=== PATIENT | male | born 1960 | race Caucasian/White ===

== ENCOUNTER 2017-04-09 08:02 | Outpatient (CLI) | payer OTHER ==
--- NOTE | 2017-04-09 12:29 | CT ---
CONTRAST ENHANCED CT IMAGES ABDOMEN AND PELVIS: HISTORY: A 56-year-old with a history of 25 to 30 pounds of weight loss. FINDINGS: The lung bases are unremarkable. No evidence of free intraperitoneal air is seen. The liver, spleen, pancreas, gallbladder, adrenal glands, and kidneys are unremarkable. There appears to be an area of focal small bowel thickening in the ileum with dilatation of the small bowel in this region. This may represent a distal small bowel mass. Differential diagnosis include s lymphoma. No evidence of significant colonic masses seen. A moderate amount of stool is seen in the colon. IMPRESSION: Abnormal area of distal small bowel wall thickening with dilatation. The differential diagnosis incl udes an inflammatory process versus malignancy. POS: [facility]
[2017-04-09] MEDS ORDERED: Iopamidol 370 76% 100 ML VIAL ONE (17:04)
== END 2017-04-09 08:03 | disposition home or self-care (01) ==
LOC: CT 08:02
PROVIDERS: ATTEND Internal Medicine Infectious Disease
DX: Z21 Asymptomatic human immunodeficiency virus [HIV] infection status (principal); K63.89 Other specified diseases of intestine
CPT/HCPCS: 74177; 82565

== ENCOUNTER 2019-01-02 20:28 | Emergency (ER) | payer SELFPAY ==
[2019-01-02 21:03] LABS: #Eosinphils 0.1 thou/uL (0.0-0.7); #Monocytes 0.4 thou/uL (0.11-0.59); #Neutrophils 4.1 thou/uL (1.40-6.50); %Basophils 0.4 % (0.0-1.0); %Eosinophils 1.3 % (0.0-10.0); %Lymphocytes 17.1 % (21.0-51.0); %Monocytes 7.6 % (0.0-10.0); %Neutrophils 73.6 % (42.0-75.0); Hemoglobin 12.6 g/dL (14.0-18.0); Mean Corpuscular HGB CONC 34.4 g/dL (32.0-36.0); Mean Corpuscular Volume 87.4 fL (78.0-98.0); Mean Platelet Volume 7.1 fL (7.4-10.4); Platelet Count 193 thou/uL (130-400); RBC Distribution Width 12.4 % (11.5-14.5); White Blood Cell (WBC) Count 5.6 thou/uL (4.8-10.8)
[2019-01-02 21:22] LABS: ALT (SGPT) 15 U/L (8-55); AST (SGOT) 18 U/L (5-34); Albumin 3.4 g/dL (3.5-5.0); Alkaline Phosphatase 99 U/L (40-110); Anion Gap 12 mmol/L (10-20); BUN (Urea Nitrogen) 18 mg/dL (8.4-25.7); Bilirubin, Total 0.3 mg/dL (0.2-1.2); Calc. Creatinine Clearance 0 mL/min (70-130); Calcium 8.4 mg/dL (7.8-10.44); Carbon Dioxide 26 mmol/L (22-29); Chloride 99 mmol/L (98-107); Estimated GFR-MDRD 83; Globulin 2.9 g/dL (2.4-3.5); Glucose 113 mg/dL (70-105); Lipase 33 U/L (8-78); Protein, Total 6.3 g/dL (6.0-8.3); Sodium 133 mmol/L (136-145)
[2019-01-02 21:31] LABS: Bilirubin Negative (Negative); Blood, Urine Negative (Negative); Clarity Clear (Clear); Glucose, Urine (Dipstick) Normal (Negative); Leukocyte Negative Leu/uL (Negative); Nitrite Negative (Negative); Protein, Urine (Dipstick) 20 mg/dL (Neg-Trace); Urobilinogen 3 mg/dL (Less than 2)
[2019-01-02] MEDS ORDERED: Morphine 4 MG/ML VIAL ONE ×2 (21:33→23:13)
[2019-01-02] MEDS ORDERED: Ondansetron PF 4 MG/2 ML Vial ONE (21:33)
--- NOTE | 2019-01-02 22:19 | RAD ---
EXAM: CHEST ONE VIEW HISTORY: Shortness of breath, dizziness, numbness in left arm. COMPARISON: None FINDINGS: The cardiac silhouette and pulmonary vasculature is within normal limits. The lungs are clear. The os seous structures are intact. IMPRESSION: No acute cardiopulmonary process.
[2019-01-02] MEDS ORDERED: Ketorolac Tromethamine 30 MG/ML VIAL ONE (23:13)
== END 2019-01-03 03:16 | disposition home or self-care (01) ==
LOC: ERS 20:28
DX: E86.0 Dehydration (principal); M54.5 Low back pain; B20 Human immunodeficiency virus [HIV] disease; F17.210 Nicotine dependence, cigarettes, uncomplicated
CPT/HCPCS: 71045; 80053; 81003; 83605; 83690; 83880; 85025; 93005; 96361; 96374; 96375; 96376; J1885; J2270; J2405

== ENCOUNTER 2019-01-13 15:45 | Inpatient (IN) | payer SELFPAY ==
[2019-01-13 16:45] LABS: #Basophils 0.1 thou/uL (0.0-0.2); #Eosinphils 0.1 thou/uL (0.0-0.7); #Lymphocytes 0.9 thou/uL (1.20-3.40); #Monocytes 0.6 thou/uL (0.11-0.59); #Neutrophils 4.1 thou/uL (1.40-6.50); %Basophils 1.2 % (0.0-1.0); %Lymphocytes 15.2 % (21.0-51.0); %Neutrophils 72.7 % (42.0-75.0); Hemoglobin 13.6 g/dL (14.0-18.0); Mean Corpuscular HGB CONC 32.8 g/dL (32.0-36.0); Mean Corpuscular Hemoglobin 28.4 pg (27.0-31.0); Mean Corpuscular Volume 86.6 fL (78.0-98.0); Mean Platelet Volume 6.9 fL (7.4-10.4); Platelet Count 178 thou/uL (130-400); RBC Distribution Width 13.4 % (11.5-14.5); Red Blood Cell (RBC) Count 4.81 mill/uL (4.70-6.10); White Blood Cell (WBC) Count 5.6 thou/uL (4.8-10.8)
--- NOTE | 2019-01-13 16:48 | RAD ---
RADIOGRAPH CHEST 1 VIEW: DATE: 01/13/2019 HISTORY: 58-year-old male with dyspnea FINDINGS: There are no airspace densities, pulmonary edema, pneumothorax, or cardiomegaly. The lateral costophr enic angles are sharp. IMPRESSION: No acute cardiopulmonary findings.
[2019-01-13 17:01] LABS: ALT (SGPT) 16 U/L (8-55); AST (SGOT) 20 U/L (5-34); Albumin 3.4 g/dL (3.5-5.0); Alkaline Phosphatase 87 U/L (40-110); Anion Gap 13 mmol/L (10-20); BUN (Urea Nitrogen) 18 mg/dL (8.4-25.7); Bilirubin, Total 0.4 mg/dL (0.2-1.2); Calc. Creatinine Clearance 0 mL/min (70-130); Carbon Dioxide 28 mmol/L (22-29); Chloride 101 mmol/L (98-107); Estimated GFR-MDRD 87; Globulin 3.3 g/dL (2.4-3.5); Glucose 91 mg/dL (70-105); Potassium 4.1 mmol/L (3.5-5.1); Protein, Total 6.7 g/dL (6.0-8.3); Sodium 138 mmol/L (136-145)
[2019-01-13 17:02] LABS: CRP (Inflammatory) 1.73 mg/dL (= or < 0.5)
--- NOTE | 2019-01-13 18:26 | CT ---
CT BRAIN NONCONTRAST: DATE: 01/13/2019 HISTORY: 58-year-old male with generalized weakness FINDINGS: There is no evidence of acute intra-axial or extra-axial hemorrhage. There is no midline shift or any other mass effect. There is no extra-axial fluid collection. There is no evidence of obstructive hydrocephalus. Calvarium is intact. IMPRESSION: No acute intracranial findings.
--- NOTE | 2019-01-13 18:47 | MRI ---
MRI cervical spine noncontrast: DATE: 01/13/2019 HISTORY: 58-year-old male with hypesthesia and paresthesia of the rest of the body inferior to the chest. COMPARISON: None available FINDINGS: Cervical spinal cord is normal in size and signal. No syringohydromyelia. Vertebral body heights are maintained. Bone marrow signal is normal. Moderate right facet DJD at C2-3. Mild to moderate facet DJD on the left at C2-3. Mild facet DJD at multiple levels bilaterally elsewhere. Moderate disc space narrowing at C5-6 and C6-7. Broad-based disc-osteophytic bar complex is encroaching upon the anterior aspect of spinal canal at C3-4, C4-5, C5-6, and C6-7. Unremarkable perivertebral spaces and retropharyngeal space. C1-2: No central stenosis. C2-3: No central stenosis. Mild right neural foraminal stenosis. No left neural foraminal stenosis. C3-4: Mild to moderate central spinal canal stenosis. Mild right neural foraminal stenosis. No left n eural foraminal stenosis. C5-6: Minimal posterior displacement of the spinal cord by broad-based disc-osteophytic bar complex, especially on right side. Right uncinate process osteophytes result in severe right neural foraminal stenosis. There is an unusual finding of an approximately 1 x 0.5 x 0.8 cm T2 hyperintense and T1 hypointense signal abnormality in the right lateral recess which appears to extend into the right facet joint, widening that facet joint. No left neural foraminal stenosis. C6-7: Mild to moderate central spinal canal stenosis. Moderate right neural foraminal stenosis. Mild to moderate left neural foraminal stenosis. C7-T1: Normal. IMPRESSION: 1. Cervical spondylosis, with moderate degenerative disc disease at C5-6 and C6-7, and moderate C2-3 facet osteoarthrosis. 2. Mostly low-grade central spinal canal stenosis. Greatest at C5-6. 3. No miah cord compression. 4. Severe right neural foraminal stenosis at C5-6. 5. Lesion in the right lateral recess at C5-6 apparently causing widening of the right facet joint. U nknown etiology. Recommend further evaluation with contrast-enhanced MRI of cervical spine on nonemergent basis. Also recommend noncontrast CT of cervical spine to search for possible osseous flor nges associated with that.
--- NOTE | 2019-01-13 19:01 | MRI ---
MRI thoracic spine noncontrast: DATE: 01/13/2019 HISTORY: 58-year-old male with worsening mid back pain with associated hypesthesia and paresthesia in the body inferior to the chest and all levels inferior to the chest. FINDINGS: Vertebral body heights are maintained. Mild lateral curvature. Bone marrow signal is normal. No high- grade degenerative disc disease. No focal disc herniation or osteophyte encroachment upon spinal canal. No central stenosis or high-grade neural foraminal stenosis at any level. Thoracic spinal cord is normal in size and signal. No syrinx. No major pathology of perivertebral spaces. Several Schmorl's nodes at upper endplates in lower thoracic spine. No cord impingement. IMPRESSION: No major pathology.
--- NOTE | 2019-01-13 19:15 | MRI ---
MRI LUMBAR SPINE NONCONTRAST: DATE: 01/13/2019 HISTORY: 58-year-old male with low back pain, and hypesthesia and paresthesia of body from chest and below. COMPARISON: None available FINDINGS: Unremarkable perivertebral spaces. There is a transitional vertebra at the lumbosacral junction. After review of the plain radiograph of 12/31/[address] of abdomen and pelvis of 04/09/2017, the following the evaluation of levels will be used: There are 12 paired ribs. The first nonrib-bearing vertebra will be designated as L1. The lumbosacral transitional level will then be L6. The dysplastic left L6 transverse process is comp letely fused with the left S1 sacral ala. The right dysplastic L6 transverse vertebra articulates with the right sacral ala. Vertebral body heights are maintained. No major spondylolisthesis. Cauda equina is arranged in a symm etrical, normal distribution throughout the thecal sac. There is no central spinal canal stenosis at any level. Bone marrow signal is normal. Conus medullaris terminates at approximately T12-L1. T12-L1: Normal L1-2: Normal L2-3: Normal L3-4: Mild lateral and far lateral shallow right disc protrusion causing mild right neural foraminal stenosis. Otherwise normal. L4-5: Mild disc desiccation. Mild disc space narrowing. Mild, shallow, broad-based chronic indentatio n of superior endplate of L5. Diffuse disc bulge. Mild to moderate bilateral neural foraminal stenosis. No central stenosis. Bilateral paracentral annular fissures peripherally. L5-6: Mild to moderate disc space narrowing. Degenerative retrolisthesis of L5 on L6. Mild diffuse di sc bulge. Tiny central and left paracentral shallow disc protrusion with left paracentral annular fissure indents the ventral aspect of thecal sac and contacts the bilateral L6 nerve roots, left grea ter than right. No central stenosis. Mild to moderate bilateral neural foraminal stenosis. Mild bilateral facet DJD. L6-S1: Hypoplastic disc space. Hypoplastic facet joints. No central or neural foraminal stenosis. IMPRESSION: 1) lumbosacral transitional vertebra type IV. 2.) Moderate degenerative disc disease at the level directly superior to the lumbosacral transitional level. 3.) No central spinal canal stenosis at any level. 4.) Mild to moderate neural foraminal stenosis bilaterally at several levels. 5) no miah nerve root compression at any level.
[2019-01-13 21:21] LABS: Bilirubin Negative (Negative); Blood, Urine Negative (Negative); Clarity Clear (Clear); Glucose, Urine (Dipstick) Negative (Negative); Leukocyte Negative (Negative); Nitrite Negative (Negative); Protein, Urine (Dipstick) Trace mg/dL (Neg-Trace)
[2019-01-13 23:18] VITALS: BMI 15.9
[2019-01-14] MEDS ORDERED: Ondansetron PF 4 MG/2 ML Vial IVP PRN (01:54)
[2019-01-14] MEDS ORDERED: Ondansetron ODT 4 MG TAB PO PRN (01:54)
[2019-01-14] MEDS ORDERED: hydrALAZINE 20 MG/ML VIAL SLOW IVP PRN (01:54)
[2019-01-14] MEDS: Piperacillin/Tazobactam 3.375 GM in Sodium Chloride 0.9% 100 ML IVPB SCH ×4 (02:13→19:57)
[2019-01-14] MEDS: Acetaminophen 500 MG TAB PO PRN ×2 (02:18→07:45)
[2019-01-14] MEDS ORDERED: Vancomycin HCl 1 GM in Premix Bag 1 BAG IVPB SCH (03:00)
[2019-01-14] MEDS: Vancomycin HCl 750 MG in Sodium Chloride 0.9% 250 ML 250 ML IVPB SCH ×2 (03:13→14:37)
[2019-01-14] MEDS: HYDROcodone/Acetaminophen 7.5/325 mg Tablet PO PRN (03:46)
[2019-01-14 06:20] LABS: Anion Gap 7 mmol/L (10-20); BUN (Urea Nitrogen) 17 mg/dL (8.4-25.7); Calc. Creatinine Clearance 78 mL/min (70-130); Calcium 8.3 mg/dL (7.8-10.44); Carbon Dioxide 29 mmol/L (22-29); Chloride 104 mmol/L (98-107); Estimated GFR-MDRD Greater than 90; Glucose 93 mg/dL (70-105); Potassium 4.4 mmol/L (3.5-5.1); Sodium 136 mmol/L (136-145)
[2019-01-14 06:27] LABS: Band 15 % (5-11); Hemoglobin 12.5 g/dL (14.0-18.0); Lymphocytes 6 % (21-51); MDiff Complete? YES; Mean Corpuscular HGB CONC 33.7 g/dL (32.0-36.0); Mean Corpuscular Hemoglobin 29.4 pg (27.0-31.0); Mean Corpuscular Volume 87.3 fL (78.0-98.0); Mean Platelet Volume 6.8 fL (7.4-10.4); Monocytes 1 % (0-10); Neutrophil 78 % (42-75); Platelet Count 176 thou/uL (130-400); RBC Distribution Width 13.3 % (11.5-14.5); Red Blood Cell (RBC) Count 4.26 mill/uL (4.70-6.10); White Blood Cell (WBC) Count 6.9 thou/uL (4.8-10.8)
[2019-01-14] MEDS ORDERED: Morphine 4 MG/ML VIAL IV SCH (07:00)
[2019-01-14] MEDS: Famotidine 20 MG TAB PO SCH ×2 (07:45→19:57)
[2019-01-14] MEDS ORDERED: FLU VACC QS2019-20(6MOS UP)/PF 60 MCG/0.5 ML SYRINGE IM ONE (09:00)
--- NOTE | 2019-01-14 09:04 | HP ---
PRIMARY CARE PROVIDER: Dr. Vince Graves with Infectious Disease Service. CHIEF COMPLAINT: Back pain and numbness of the chest and lower extremities. HISTORY OF PRESENT ILLNESS: This is a 58-year-old male with a known history of human immunodeficiency virus, on current anti-retroviral therapy since 2004. Complaining of approximately 3-week history of paresthesias, numbness from the mid torso to the lower extremities. The patient denied any specific fever, chills, bowel, or bladder incontinence. The patient initially complained of central lower back pain, evaluated at [facility] with plain radiographs showing degenerative findings. The patient reports difficulty ambulating and standing due to the numbness and pain. The patient denied any chest pain, shortness of breath, unilateral weakness, or difficulty with speech. In the emergency room, the patient underwent extensive evaluation with multiple imaging modality including MRI of the cervical, thoracic, and lumbar spine in addition to CT of the brain. Cervical spine MRI showed questionable mass in the right lateral recess at C5 on C6. Etiology unclear. CT of the brain without contrast showed no acute intracranial process. The patient received IV fluids in the emergency room and was referred to the Hospitalist Service for admission and evaluation. PAST MEDICAL HISTORY: Human immunodeficiency virus with current anti-retroviral therapy. PAST SURGICAL HISTORY: Reviewed and negative. CURRENT MEDICATIONS: Symtuza one tablet daily. ALLERGIES: NO KNOWN DRUG ALLERGIES. FAMILY HISTORY: No inheritable disease per patient report. SOCIAL HISTORY: Resides in [place], [place]. Smokes up to a pack of cigarettes daily. Occasional alcohol use. Difficulty ambulating due to back pain and lower extremity numbness. No illicit drug use. REVIEW OF SYSTEMS: CONSTITUTIONAL: Negative for weight loss or gain, ability to conduct usual activities. SKIN: Negative for rash, itching. EYES: Negative for double vision, pain. ENT/MOUTH: Negative for nose bleeding, neck stiffness, pain, tenderness. CARDIOVASCULAR: Negative for palpitations, dyspnea on exertion, orthopnea. RESPIRATORY: Negative for shortness of breath, wheezing, cough, hemoptysis, fever or night sweats. GASTROINTESTINAL: Negative for poor appetite, abdominal pain, heartburn, nausea, vomiting, constipation, or diarrhea. GENITOURINARY: Negative for urgency, frequency, dysuria, nocturia. MUSCULOSKELETAL: Negative for pain, swelling. NEUROLOGIC/PSYCHIATRIC: Negative for anxiety, depression. ALLERGY/IMMUNOLOGIC: Negative for skin rash, bleeding tendency. Otherwise negative except as stated per HPI. PHYSICAL EXAMINATION: VITAL SIGNS: On admission, blood pressure 136/87, pulse 92, respiratory rate 16, temperature 97.8 degrees Fahrenheit, and O2 saturation 99% on room air. GENERAL APPEARANCE: This is a 58-year-old male, thin appearing, alert, responsive, in no acute distress. HEENT: Pupils are equal, round, reactive to light and accommodation. Extraocular muscles are intact. No scleral icterus. No conjunctival injection. Nares patent. OP is clear. Teeth in fair repair. NECK: Supple. No cervical adenopathy. No thyromegaly. No carotid bruits. No JVD appreciated. Cervical spine with full active and passive range of motion. No meningeal signs noted. CHEST: Lungs are clear to auscultation bilaterally. CARDIOVASCULAR: S1, S2 without noted murmur, rub, or gallop. ABDOMEN: Flat, soft, nontender, and nondistended. Bowel sounds are positive in all 4 quadrants. There is no hepatosplenomegaly. No abdominal bruits. No rebound or guarding appreciated. EXTREMITIES: Warm and dry with fair turgor. Generalized atrophy noted. Pulses are palpable distally at the dorsalis pedis, posterior tibial, and popliteal arteries bilaterally. Capillary refill less than 2 seconds. NEUROLOGIC: Loss of sensation in the mid torso below the nipple line to the abdominal and proximal thighs. Rapid alternating movements abnormal. Babinski negative. No nystagmus. Not observed ambulatory during this exam. Cranial nerves 2 through 12 are grossly intact. PERTINENT LABORATORY AND X-RAY FINDINGS: Portable chest x-ray dated 01/13/2019, showed no acute cardiopulmonary process. Cervical spine MRI dated 01/13/2019, showed lesion in the right lateral recess at C5 on C6 with widening of the right facet joint. Severe right neural foraminal stenosis at C5 on C6. Thoracic spine MRI dated 01/13/2019, showed no major pathology. MRI of the lumbar spine dated 01/13/2019, showed moderate degenerative disk disease. CT of the brain without contrast dated 01/13/2019, showed no acute intracranial process. Laboratory data, basic metabolic profile within normal limits. Total CK of 52. CRP 1.73. CBC showed a white blood cell count of 5.6, hemoglobin 13.6, hematocrit 42, platelet count 178 with 73% neutrophils, ESR 41. ASSESSMENT/PLAN: 1. Paresthesia and peripheral neuropathy. The patient will be admitted to the medical floor. Questionable relationship to lesion noted at the C5-C6 region on MRI of the cervical spine. We will consult Neurology and Neurosurgical services for evaluation. We will initiate vancomycin 1 g IV q.12 hours with additional Zosyn 3.375 g IV q.6 hours for questionable diskitis or infectious process. Consult Infectious Disease Service for further evaluation. PT evaluation in the a.m. for functional assessment. Pain control as clinically indicated. 2. Human immunodeficiency virus. We will continue Symtuza daily. Consult Infectious Disease Service for any further recommendations. 3. Ataxic gait. Secondarily to #1. See #1 above for management. 4. Moderate protein-calorie malnutrition. Questionable wasting syndrome in the context of human immunodeficiency virus. Consider CD4 assessment. Consider Megace. 5. Prophylaxis. SCDs while in bed. Pepcid 20 mg p.o. b.i.d. Influenza vaccine prior to discharge. CODE STATUS: Full. Surrogate medical decision maker not identified. Job ID: [id number]
[2019-01-14] MEDS ORDERED: Iopamidol-370 76% 500 ML 1 ML ONE (11:45)
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
[2019-01-14 20:07] LABS: Free T4 (Free Thyroxine) 0.96 ng/dL (0.70-1.48); Thyroid Stimulating Hormone 0.6529 uIU/mL (0.35-4.94)
--- NOTE | 2019-01-14 20:08 | CT ---
CT Chest Abd Pelvis W Con History: HIV Comparison: CT abdomen and pelvis thousand 18 Findings: Mild centrilobular emphysema. No pneumothorax. No effusion. The thyroid is unremarkable. No pericardial effusion. No mediastinal adenopathy. Moderate stool burden throughout the colon. No dilated loops of large or small bowel. The spleen, pita er, gallbladder, pancreas are all unremarkable. No intrahepatic or extrahepatic biliary dilatation. No hydronephrosis. Superior mesenteric artery and celiac trunk are patent as well as the portal vein. Old compression deformity of L4. Impression: No acute inflammatory process within the chest, abdomen, or pelvis.
[2019-01-14 20:15] LABS: Syphilis Antibody Index 19.54 S/CO (<1.00 Non-Reactive)
[2019-01-14 21:30] LABS: Syphilis Antibody REACTIVE (Nonreactive)
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
[2019-01-15] MEDS: Piperacillin/Tazobactam 3.375 GM in Sodium Chloride 0.9% 100 ML IVPB SCH ×4 (02:17→20:21)
[2019-01-15] MEDS: Vancomycin HCl 750 MG in Sodium Chloride 0.9% 250 ML 250 ML IVPB SCH ×2 (03:24→14:04)
[2019-01-15] MEDS: Famotidine 20 MG TAB PO SCH ×2 (07:50→20:21)
[2019-01-15 09:05] LABS: ALT (SGPT) 25 U/L (8-55); AST (SGOT) 31 U/L (5-34); Alkaline Phosphatase 89 U/L (40-110); Anion Gap 10 mmol/L (10-20); BUN (Urea Nitrogen) 19 mg/dL (8.4-25.7); Bilirubin, Total 0.4 mg/dL (0.2-1.2); Calc. Creatinine Clearance 67 mL/min (70-130); Calcium 8.6 mg/dL (7.8-10.44); Carbon Dioxide 27 mmol/L (22-29); Chloride 105 mmol/L (98-107); Estimated GFR-MDRD 80; Globulin 3.2 g/dL (2.4-3.5); Glucose 96 mg/dL (70-105); Magnesium 2.1 mg/dL (1.6-2.6); Phosphorus 2.8 mg/dL (2.3-4.7); Potassium 4.8 mmol/L (3.5-5.1); Protein, Total 6.2 g/dL (6.0-8.3); Sodium 137 mmol/L (136-145)
[2019-01-15] MEDS ORDERED: Multivit, Therapeutic 1 TAB PO SCH (09:45)
[2019-01-15] MEDS ORDERED: Cyanocobalamin 1000 MCG/ML VIAL IM SCH (09:45)
[2019-01-15] MEDS ORDERED: Folic Acid 1 MG TAB PO SCH (09:45)
[2019-01-15 10:40] LABS: Band 12 % (5-11); Eosinophils 3 % (0-10); Hemoglobin 12.5 g/dL (14.0-18.0); Lymphocytes 13 % (21-51); MDiff Complete? YES; Mean Corpuscular HGB CONC 33.3 g/dL (32.0-36.0); Mean Corpuscular Hemoglobin 29.3 pg (27.0-31.0); Mean Corpuscular Volume 87.8 fL (78.0-98.0); Mean Platelet Volume 7.6 fL (7.4-10.4); Monocytes 4 % (0-10); Neutrophil 64 % (42-75); Platelet Count 162 thou/uL (130-400); RBC Distribution Width 13.3 % (11.5-14.5); Reactive Lymphocytes 4 % (0-10); Red Blood Cell (RBC) Count 4.27 mill/uL (4.70-6.10); White Blood Cell (WBC) Count 6.3 thou/uL (4.8-10.8)
--- NOTE | 2019-01-15 11:05 | MRI ---
MRI CERVICAL SPINE WITH AND WITHOUT CONTRAST: 01/15/2019 HISTORY: Evaluate lesion in the right foraminal region at C5-6 noted on prior MRI. COMPARISON: 01/13/2019 TECHNIQUE: Multiplanar multisequence MR imaging of the cervical spine with and without contrast. FINDINGS: The sagittal STIR imaging demonstrates no focal area of osseous marrow edema. Minimal retrolisthesis at C3-4. C2-3: Small central disc protrusion. No significant central canal or neural foraminal stenosis. C3-4: Disc desiccation with mild disc space narrowing and mild disc bulge partially effacing the vent ral thecal sac with mild central canal stenosis. No significant neural foraminal stenosis. C4-5: Disc space narrowing with mild disc bulge partially effacing the ventral thecal sac with mild c entral canal stenosis. Mild facet and uncovertebral osteophyte formation on the right with mild right neural foraminal stenosis. No significant left neural foraminal stenosis. C5-6: There is disc space narrowing and disc desiccation with mild disc bulge partially effacing the ventral thecal sac with mild central canal stenosis. Significant facet and uncovertebral osteophyte formation bilaterally, particularly on the right, with mild left and moderate/severe right neural for aminal stenosis. No mass is noted within the right neural foramen or right lateral recess at C5-6. C6-7: There is disc space narrowing and disc desiccation with degenerative endplate change and mild d isc bulge. No significant central canal stenosis. Facet and uncovertebral osteophyte formation noted, right greater than left, with mild bilateral neural foraminal stenosis, right greater than lef t. C7-T1: No significant central canal or neural foraminal stenosis. No focal area of abnormal signal intensity is identified within the cervical cord. Post contrast imaging demonstrates no abnormal enhancement involving the contents of the thecal sac, the imaged osseous structures, or the intervertebral discs. IMPRESSION: Cervical spine degenerative change as detailed above, most significant finding being significant neur al foraminal stenosis on the right at C5-6, on the basis of facet and uncovertebral osteophyte formation. No associated mass is noted in this region. Transcribed Date/Time: 01/15/2019 2:11 PM
[2019-01-15 14:54] LABS: Vancomycin, Trough 8.3 ug/mL
[2019-01-15] MEDS: Folic Acid 1 MG TAB PO SCH (20:21)
[2019-01-16] MEDS: Piperacillin/Tazobactam 3.375 GM in Sodium Chloride 0.9% 100 ML IVPB SCH ×2 (02:38→08:23)
[2019-01-16] MEDS ORDERED: Vancomycin HCl 1.25 GM in Sodium Chloride 0.9% 250 ML 250 ML IVPB SCH (03:00)
[2019-01-16] MEDS: Acetaminophen 500 MG TAB PO PRN (06:26)
[2019-01-16] MEDS: HYDROcodone/Acetaminophen 7.5/325 mg Tablet PO PRN ×2 (07:26→21:31)
[2019-01-16] MEDS: Multivit, Therapeutic 1 TAB PO SCH (08:25)
[2019-01-16] MEDS: Famotidine 20 MG TAB PO SCH ×2 (08:25→20:13)
[2019-01-16] MEDS: Cyanocobalamin (Vitamin B-12) 1,000 MCG TAB PO SCH (08:25)
[2019-01-16] MEDS: Folic Acid 1 MG TAB PO SCH ×2 (08:25→20:13)
--- NOTE | 2019-01-16 10:39 | PDOC.HOSPP ---
- Subjective Encounter Date: 01/15/19 Encounter Time: 11:00 Subjective: Patient seen and examined for Gen weakness/Paresthesia. No new focal deficits. No new complaints. No overnight events - Objective Vital Signs & Weight: Vital Signs (12 hours) Temp Pulse Resp BP Pulse Ox 01/16/19 07:47 98.2 F 83 16 144/93 H 97 Weight Admit Weight 127 lb 8 oz Weight 127 lb 8 oz I&O: 01/15/19 01/16/19 01/17/19 06:59 06:59 06:59 Intake Total 1600 1460 Output Total 1750 1750 400 Balance -150 290 -400 Result Diagrams: 01/15/19 06:35 01/15/19 06:35 Radiology Reviewed by me: Yes (CT - no acute findings) Hospitalist ROS - Review of Systems Respiratory: denies: cough, dry, shortness of breath, hemoptysis, SOB with excertion, pleuritic pain, sputum, wheezing, other Cardiovascular: denies: chest pain, palpitations, orthopnea, paroxysmal noc. dyspnea, edema, light headedness, other Gastrointestinal: denies: nausea, vomiting, abdominal pain, diarrhea, constipation, melena, hematochezia, other - Medication Medications: Active Medications Generic Name Dose Route Start Last Admin Trade Name Freq PRN Reason Stop Dose Admin Acetaminophen 1,000 mg 01/14/19 01:54 01/16/19 06:26 Tylenol PO 1,000 mg Q6H PRN Administration Mild Pain (1-3) Hydrocodone Bitart/Acetaminophen 1 tab 01/14/19 03:31 01/16/19 07:26 [place] 7.5/325 PO 1 tab Q6H PRN Administration Severe Pain (7-10) Cyanocobalamin 1,000 mcg 01/16/19 09:00 01/16/19 08:25 Vitamin B-12 PO 1,000 mcg DAILY ELIZABETH Administration Famotidine 20 mg 01/14/19 09:00 01/16/19 08:25 Pepcid PO 20 mg BID ELIZABETH Administration Folic Acid 1 mg 01/15/19 21:00 01/16/19 08:25 Folvite PO 1 mg BID ELIZABETH Administration Piperacillin Sod/Tazobactam 100 mls @ 200 mls/hr 01/14/19 03:00 01/16/19 08: 23 Sod 3.375 gm/ Sodium Chloride IVPB 100 mls 0300,0900,1500,2100 ELIZABETH Administration Vancomycin HCl 1.25 gm/ Sodium 250 mls @ 166.667 mls/hr 01/16/19 03:00 03:40 Chloride IVPB 250 mls 0300,1500 ELIZABETH Administration Multivitamins 1 tab 01/16/19 09:00 01/16/19 08:25 Theragran PO 1 tab DAILY ELIZABETH Administration Sodium Chloride 10 ml 01/14/19 09:00 01/16/19 08:26 Flush - Normal Saline IVF 10 ml Q12HR ELIZABETH Administration - Exam General Appearance: NAD Heart: RRR, no gallops Respiratory: CTAB, no rales Gastrointestinal: soft, non-distended Extremities: no edema Neurological: no new deficit Psychiatric: normal affect, A&O x 3 Hosp A/P - Plan DVT proph w/SCDs Gen weakness/Paresthesia Gait Ataxia HIV on HAART Moderate PEM Folic acid def PLAN: ID/Neuro input appreciated LP on thursday Await other w/u per Dr Graves Replace Folic acid PT/OT Cont HAART Cont other meds Fall precautions
--- NOTE | 2019-01-16 14:02 | PRG ---
DATE OF SERVICE: 01/16/2019 SUBJECTIVE: Feeling about the same, still with the same sensation of lack of full sensory perception below the upper chest area and difficulty with ambulation, requiring help. No headaches. No shortness of breath or cough. No abdominal pain. No diarrhea. No genitourinary symptoms. Able to void. OBJECTIVE: VITAL SIGNS: He has been afebrile since last visit. HEENT: Normal. LUNGS: Clear. HEART: S1-S2. Regular rate. ABDOMEN: Soft. Not distended/ EXTREMITIES: Numbness in upper and lower extremities. 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 He is able to move extremities, but little bit weak. LABORATORY DATA: White cell count 6.3, hemoglobin 12.5, and platelets 162. Chemistry fairly unremarkable. Albumin 3.0. Folate was a little low at 6.2. Urinalysis not remarkable. The serology showed reactive syphilis antibody with a titer of 1:32. Last syphilis treatment more than a year ago by injection in the muscle. Chest, abdomen, and pelvis CT, not remarkable. Cervical spine MRI with contrast not remarkable. ASSESSMENT AND DISCUSSION: 1. Longstanding human immunodeficiency virus infection. CD4 in the low 300 range with excellent compliance anti-retroviral therapy and suppressed viral load. 2. Previous syphilis treatment about more than a year ago, now with high titer 1:32 in neurological symptoms that are consistent with neurosyphilis with the spinal involvement. The CSF is pending. We will go ahead and get started on penicillin G IV, the usual dose. Job ID: [id number]
--- NOTE | 2019-01-16 14:32 | PDOC.HOSPP ---
- Subjective Encounter Date: 01/16/19 Encounter Time: 14:30 Subjective: Patient seen and examined for Gen weakness/Ataxia. No new focal deficits. Feeling somewhat better. No new complaints. No overnight events - Objective Vital Signs & Weight: Vital Signs (12 hours) Temp Pulse Resp BP Pulse Ox 01/16/19 11:22 97.6 F 77 16 129/85 01/16/19 07:47 98.2 F 83 16 144/93 H 97 Weight Admit Weight 127 lb 8 oz Weight 127 lb 8 oz I&O: 01/15/19 01/16/19 01/17/19 06:59 06:59 06:59 Intake Total 1600 1460 Output Total 1750 1750 400 Balance -150 -290 -400 Result Diagrams: 01/15/19 06:35 01/15/19 06:35 Hospitalist ROS - Review of Systems Respiratory: denies: cough, dry, shortness of breath, hemoptysis, SOB with excertion, pleuritic pain, sputum, wheezing, other Cardiovascular: denies: chest pain, palpitations, orthopnea, paroxysmal noc. dyspnea, edema, light headedness, other Gastrointestinal: denies: nausea, vomiting, abdominal pain, diarrhea, constipation, melena, hematochezia, other - Medication Medications: Active Medications Generic Name Dose Route Start Last Admin Trade Name Freq PRN Reason Stop Dose Admin Acetaminophen 1,000 mg 01/14/19 01:54 01/16/19 06:26 Tylenol PO 1,000 mg Q6H PRN Administration Mild Pain (1-3) Hydrocodone Bitart/Acetaminophen 1 tab 01/14/19 03:31 01/16/19 07:26 [place] 7.5/325 PO 1 tab Q6H PRN Administration Severe Pain (7-10) Cyanocobalamin 1,000 mcg 01/16/19 09:00 01/16/19 08:25 Vitamin B-12 PO 1,000 mcg DAILY ELIZABETH Administration Famotidine 20 mg 01/14/19 09:00 01/16/19 08:25 Pepcid PO 20 mg BID ELIZABETH Administration Folic Acid 1 mg 01/15/19 21:00 01/16/19 08:25 Folvite PO 1 mg BID ELIZABETH Administration Multivitamins 1 tab 01/16/19 09:00 01/16/19 08:25 Theragran PO 1 tab DAILY ELIZABETH Administration Sodium Chloride 10 ml 01/14/19 09:00 01/16/19 08:26 Flush - Normal Saline IVF 10 ml Q12HR ELIZABETH Administration - Exam General Appearance: NAD Heart: RRR, no gallops Respiratory: CTAB, no rales Gastrointestinal: soft, non-distended Extremities: no edema Hosp A/P - Plan DVT proph w/SCDs Gen weakness/Paresthesia/Gait Ataxia - suspected due to Neurosyphilis HIV on HAART Moderate PEM Folic acid def PLAN: Started on Pen G Vancomycin/Zosyn dced LP in AM Cont HAART and Folic acid replacement Cont other meds
[2019-01-16] MEDS: Penicillin G Potassium 4 MILL.UNITS in Sodium Chloride 0.9% 100 ML IVPB SCH ×2 (17:12→21:24)
[2019-01-16] MEDS: [UNRECOGNIZED DRUG - OTHER] PO SCH (17:12)
[2019-01-17] MEDS: Penicillin G Potassium 4 MILL.UNITS in Sodium Chloride 0.9% 100 ML IVPB SCH ×6 (00:45→20:28)
[2019-01-17] MEDS: HYDROcodone/Acetaminophen 7.5/325 mg Tablet PO PRN ×2 (03:41→20:27)
[2019-01-17] MEDS: Famotidine 20 MG TAB PO SCH ×2 (09:04→20:26)
[2019-01-17] MEDS: Multivit, Therapeutic 1 TAB PO SCH (09:04)
[2019-01-17] MEDS: Cyanocobalamin (Vitamin B-12) 1,000 MCG TAB PO SCH (09:04)
[2019-01-17] MEDS: Folic Acid 1 MG TAB PO SCH ×2 (09:04→20:26)
[2019-01-17] MEDS ORDERED: Acetaminophen 500 MG TAB PO PRN (15:27)
[2019-01-17 16:11] LABS: CSF, Glucose 48 mg/dl (40-70); CSF, Protein 133 mg/dL (15-40)
[2019-01-17] MEDS: [UNRECOGNIZED DRUG - OTHER] PO SCH (16:23)
[2019-01-17 16:42] LABS: CSF Source CSF; Clarity Cloudy/Turbid (Clear)
[2019-01-17 16:43] LABS: Tube # 4
[2019-01-17 16:46] LABS: Cell Count Non Hematic 16 %; Eosinophils 3 %; Lymphocytes 44 %
[2019-01-17 16:52] LABS: Segmented Neutrophils 37 %
--- NOTE | 2019-01-17 17:51 | RAD ---
FLUOROSCOPIC GUIDED LUMBAR PUNCTURE: HISTORY: Quadriparesis with paresthesias. History of HIV. TECHNIQUE: The procedure, including the risks and complications, was explained to the patient and informed conse nt was obtained. The patient was placed on the fluoroscopy table in the prone position. There are six [id number] lumbar type vertebral bodies. In keeping with the numbering system on the recent MRI lumbar spine, an area overlying the L5-L6 level was marked and the area was meticulously prepped and draped in the usual sterile fashion. The skin and subcutaneous tissues were infiltrated with buffere d 1% Lidocaine for local anesthesia. A 22 gauge spinal needle was advanced into the thecal sac. After return of the needle there was a ret urn of blood-tinged cerebrospinal fluid. An opening pressure of 9 cm of water was obtained. Approxima tely 15 mL of blood-tinged cerebrospinal fluid was collected during the exam, as requested. There was not significant clearing of the cerebrospinal fluid throughout the procedure and collection. The inner stylet was replaced and the needle was removed. Hemostasis was achieved with direct pressur e. The patient tolerated the procedure well and without immediate complication. A dry sterile dressi ng was placed at the puncture site. The patient tolerated the procedure well and without immediate co mplication and was discharged to his hospital room in stable condition. TOTAL FLUOROSCOPY TIME: 0.2 minutes TOTAL DOSE: 21.3 mGy per M2 IMPRESSION: Technically successful lumbar puncture with collection of 15 mL of blood tinged cerebrospinal fluid. POS: OFF
[2019-01-17 19:09] LABS: A/G Ratio 0.9 (0.7-1.7); Albumin 2.7 g/dL (2.9-4.4); Alpha 1 0.3 g/dL (0.0-0.4); Alpha 2 0.6 g/dL (0.4-1.0); Beta 0.9 g/dL (0.7-1.3); Gamma 1.3 g/dL (0.4-1.8); Globulin, Total 3.1 g/dL (2.2-3.9); M-Spike Not Observed g/dL (Not Observed)
[2019-01-18] MEDS: Penicillin G Potassium 4 MILL.UNITS in Sodium Chloride 0.9% 100 ML IVPB SCH ×6 (01:10→20:15)
[2019-01-18] MEDS: HYDROcodone/Acetaminophen 7.5/325 mg Tablet PO PRN ×2 (01:49→08:18)
--- NOTE | 2019-01-18 07:30 | PDOC.HOSPP ---
- Subjective Encounter Date: 01/17/19 Encounter Time: 18:00 Subjective: Patient seen and examined for Gen weakness/Gait Ataxia. s/p LP. No new weakness. No new complaints. No overnight events - Objective Vital Signs & Weight: Vital Signs (12 hours) Temp Pulse Resp BP BP Pulse Ox 01/18/19 04:00 97.6 F 79 18 163/97 H 97 01/18/19 00:00 98.1 F 75 18 157/87 H 98 01/17/19 20:30 95 01/17/19 20:00 97.9 F 79 18 152/98 H 95 Weight Admit Weight 127 lb 8 oz Weight 127 lb 8 oz I&O: 01/17/19 01/18/19 01/19/19 06:59 06:59 06:59 Intake Total 1120 2020 Output Total 1600 680 Balance -480 1340 Result Diagrams: 01/15/19 06:35 01/15/19 06:35 Hospitalist ROS - Review of Systems Cardiovascular: denies: chest pain, palpitations, orthopnea, paroxysmal noc. dyspnea, edema, light headedness, other Gastrointestinal: denies: nausea, vomiting, abdominal pain, diarrhea, constipation, melena, hematochezia, other - Medication Medications: Active Medications Generic Name Dose Route Start Last Admin Trade Name Freq PRN Reason Stop Dose Admin Hydrocodone Bitart/Acetaminophen 1 tab 01/14/19 03:31 01/18/19 01:49 [place] 7.5/325 PO 1 tab Q6H PRN Administration Severe Pain (7-10) Cyanocobalamin 1,000 mcg 01/16/19 09:00 01/17/19 09:04 Vitamin B-12 PO 1,000 mcg DAILY ELIZABETH Administration Famotidine 20 mg 01/14/19 09:00 01/17/19 20:26 Pepcid PO 20 mg BID ELIZABETH Administration Folic Acid 1 mg 01/15/19 21:00 01/17/19 20:26 Folvite PO 1 mg BID ELIZABETH Administration Penicillin G Potassium 4 mill. 100 mls @ 200 mls/hr 01/16/19 17:00 01/18/19 04:48 units/ Sodium Chloride IVPB 100 mls Q4HR ELIZABETH Administration Multivitamins 1 tab 01/16/19 09:00 01/17/19 09:04 Theragran PO 1 tab DAILY ELIZABETH Administration Darunavir/Cob/Emtri/ 1 each 01/16/19 17:00 01/17/19 16:23 Tenof Alaf [Symtuza PO 1 each 786-698-995-10 Mg QPM-WM ELIZABETH Administration Tab] Sodium Chloride 10 ml 01/14/19 09:00 01/17/19 20:33 Flush - Normal Saline IVF 10 ml Q12HR ELIZABETH Administration - Exam General Appearance: NAD Neck: supple, no JVD Heart: RRR, no gallops Respiratory: no rales, no ronchi Gastrointestinal: soft, non-distended Extremities: no edema Neurological: no new deficit Psychiatric: normal affect, A&O x 3 Hosp A/P - Plan DVT proph w/SCDs Gen weakness/Paresthesia/Gait Ataxia - suspected due to Neurosyphilis HIV on HAART Moderate PEM Folic acid def PLAN: Cont Pen G Await results from CSF Cont HAART and other meds
[2019-01-18] MEDS: Folic Acid 1 MG TAB PO SCH ×2 (08:18→20:15)
[2019-01-18] MEDS: Cyanocobalamin (Vitamin B-12) 1,000 MCG TAB PO SCH (08:18)
[2019-01-18] MEDS: Multivit, Therapeutic 1 TAB PO SCH (08:18)
[2019-01-18] MEDS: Famotidine 20 MG TAB PO SCH ×2 (08:18→20:14)
[2019-01-18] MEDS ORDERED: Amlodipine 5 MG TAB PO SCH (09:00)
--- NOTE | 2019-01-18 09:23 | PRG ---
DATE OF SERVICE: 01/18/2019 SUBJECTIVE: The patient is seen and examined at the bedside. He has numbness in area which starts at the level of approximately upper chest down all the way to his feet. Also, he complains about some weakness in his upper and lower extremities. OBJECTIVE: VITAL SIGNS: Blood pressure is 163/86, pulse is 97, respiratory rate is 20, and O2 saturation is 100% on room air, his temperature is 98.7 and maximal temperature is 98.9 for the last 24 hours. HEENT: His head is atraumatic and normocephalic. Eyes are PERRLA. Sclerae are nonicteric. Oral mucosa is moist. NECK: Supple. LUNGS: Clear. HEART: S1 and S2 normal. No S3. No S4. No any murmur. ABDOMEN: Soft, nontender, nondistended. Bowel sounds are present. No organomegaly. EXTREMITIES: No clubbing, cyanosis, or edema. NEUROLOGICAL: He is alert and oriented x4. There is no any deficits in his cranial nerves, but he has some weakness in the upper and lower extremities which is rated approximately 4/5 in the upper and lower extremities, similar bilaterally. Also, there is decreased sensation below his upper chest all the way to his feet. LABORATORY DATA: None today, but yesterday he had LP and CSF showed clarity cloudy/turbid and neutrophils segmented 37%, 44 lymphocytes, 3 eosinophils. Differential is pending. RBCs 19,797, nucleated 115, glucose is 48. CSF total protein is 133. Cryptococcal antigen is negative. IMPRESSION: 1. Generalized weakness with paresthesia, decreased sensation from the area of his upper chest down and gait ataxia secondary to neurosyphilis. The patient is started on penicillin G. 2. HIV on HAART controlled. 3. Moderate PEM. 4. Folic acid deficiency. PLAN: Plan is to continue his penicillin G 4 millions q.4 hours. Continue his folic supplementation and continue his Symtuza which is combination of different antiviral for HIV. Job ID: [id number]
--- NOTE | 2019-01-18 16:43 | PRG ---
DATE OF SERVICE: 01/18/2019 SUBJECTIVE: He is about the same. He is able to walk around with the assistance of the physical therapist. He is still getting penicillin without complications. No respiratory symptoms. No diarrhea. No genitourinary symptoms. OBJECTIVE: VITAL SIGNS: Normal. Slight elevation of systolic blood pressure. GENERAL: Awake, alert, and oriented. LUNGS: Clear. HEART: S1 and S2. Regular rate. No S3 or S4. ABDOMEN: Soft and nondistended. NEUROLOGIC: Again, he is he has flexor plantar reflexes. His strength is a little bit better in the lower extremities. His cognitive function is normal. LABORATORY DATA: White cell count 6.3, hemoglobin 12.5. Chemistry not particularly remarkable. TSH 0.65, T4 is 96. CSF findings with a noted increase in protein, nucleated cells were 115 with 37% neutrophils. RPR titer was 1-32 and VDRL in the CSF is pending. ASSESSMENT AND DISCUSSION: Longstanding human immunodeficiency virus infection with CD4 in the low 300 range with excellent compliance with anti-retroviral therapy, previous syphilis more than a year ago and now with a high titer and findings that could be consistent with neurosyphilis with spinal involvement. The patient has been on penicillin now for about 3 days. We could either put a peripherally inserted central catheter line and finish the treatment, which would be ideal. The alternate approach would be to give him a procaine penicillin, that will be 2.4 million units IM q.24 hours and probenecid 0.5 g four times daily for 14 days. Job ID: [id number]
[2019-01-18] MEDS: [UNRECOGNIZED DRUG - OTHER] PO SCH (18:09)
[2019-01-19] MEDS: Penicillin G Potassium 4 MILL.UNITS in Sodium Chloride 0.9% 100 ML IVPB SCH ×6 (00:22→20:36)
[2019-01-19] MEDS: HYDROcodone/Acetaminophen 7.5/325 mg Tablet PO PRN ×2 (01:50→08:41)
[2019-01-19] MEDS: Multivit, Therapeutic 1 TAB PO SCH (08:41)
[2019-01-19] MEDS: Famotidine 20 MG TAB PO SCH ×2 (08:41→20:35)
[2019-01-19] MEDS: Cyanocobalamin (Vitamin B-12) 1,000 MCG TAB PO SCH (08:41)
[2019-01-19] MEDS: Folic Acid 1 MG TAB PO SCH ×2 (08:41→20:35)
[2019-01-19] MEDS: Amlodipine 5 MG TAB PO SCH (08:42)
--- NOTE | 2019-01-19 09:02 | PRG ---
DATE OF SERVICE: 01/19/2019 SUBJECTIVE: The patient is seen and examined at bedside. Yesterday, he visited with Dr. 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 OBJECTIVE: VITAL SIGNS: Blood pressure is 150/92, pulse is 80, temperature is 97.9, maximal temperature is 98.7, respiratory rate is 16, and O2 saturation is 98% on room air. HEENT: His head is atraumatic and normocephalic. He looks quite malnourished. His eyes are PERRLA, sclerae are nonicteric. Oral mucosa is moist. NECK: Supple. LUNGS: Clear. HEART: S1 and S2, normal. ABDOMEN: Soft, nontender. Bowel sounds are present. No organomegaly. EXTREMITIES: No clubbing, cyanosis, or edema. NEUROLOGIC: He still has this numbness, which starts at the level of his pectoralis muscles bilaterally similar. He is alert and oriented x4. There are no any motor deficits. LABORATORY DATA: None today. IMPRESSION: 1. Generalized weakness with paresthesias and decreased sensation from the chest down, suspected for neurosyphilis. The patient is on penicillin G. We are still awaiting final report on his CSF to finalize the decision about the treatment. He will continue on penicillin G. 2. Human immunodeficiency virus, controlled. 3. Moderate PEM. 4. Folic acid deficiency. PLAN: Continue his current regimen, which is penicillin G 4,000,000 every 4 hours. He will continue his folic acid. I am going to increase his amlodipine to 5 mg, he is still running blood pressure slightly on the higher side and as soon as we have final report, he should be able to go for outpatient treatment. Job ID: [id number]
[2019-01-19 11:11] LABS: Arsenic - Blood 4 ug/L (2-23); Lead - Blood 19 ug/dL (0-4); Mercury - Blood None Detected ug/L (0.0-14.9)
[2019-01-19 13:11] LABS: VDRL, CSF Non Reactive (Non Rea:<1:1)
[2019-01-19] MEDS: [UNRECOGNIZED DRUG - OTHER] PO SCH (17:12)
[2019-01-20] MEDS: Penicillin G Potassium 4 MILL.UNITS in Sodium Chloride 0.9% 100 ML IVPB SCH ×6 (00:15→20:48)
[2019-01-20] MEDS: HYDROcodone/Acetaminophen 7.5/325 mg Tablet PO PRN ×3 (00:18→16:13)
[2019-01-20] MEDS: Famotidine 20 MG TAB PO SCH ×2 (07:50→20:48)
[2019-01-20] MEDS: Cyanocobalamin (Vitamin B-12) 1,000 MCG TAB PO SCH (07:50)
[2019-01-20] MEDS: Amlodipine 5 MG TAB PO SCH (07:51)
[2019-01-20] MEDS: Folic Acid 1 MG TAB PO SCH ×2 (07:52→20:48)
[2019-01-20] MEDS: Multivit, Therapeutic 1 TAB PO SCH (07:52)
--- NOTE | 2019-01-20 12:06 | PRG ---
DATE OF SERVICE: 01/20/2019 SUBJECTIVE: The patient is seen and examined at the bedside. He complains about some back pain, which is chronic. His numbness level is the same what it was yesterday. His appetite is fair. OBJECTIVE: VITAL SIGNS: Blood pressure is 116/78, pulse is 92, temperature is 98.3, respirations 16, O2 saturation is 95% on room air. HEENT: His head is atraumatic and normocephalic. Eyes are PERRLA. Sclerae are nonicteric. Oral mucosa is moist. NECK: Supple. LUNGS: Clear. HEART: S1 and S2 normal. No S3. No S4. No any murmur. ABDOMEN: Soft, nontender, and nondistended. EXTREMITIES: No clubbing, cyanosis, or edema. NEUROLOGIC: He is alert and oriented x3. There is no any motor deficit, but sensation is significantly decreased from the pectoralis muscles bilaterally down all the way to his both feet. LABORATORY DATA: None today. IMPRESSION: 1. Generalized weakness with paresthesias and decreased sensation from the chest down, suspected cause of first neurosyphilis. The patient is on penicillin G and we are going to continue that treatment. He will get the peripherally inserted central catheter line and be discharged home to continue his antibiotic treatment for a total of, I believe, two weeks on outpatient basis. 2. Human immunodeficiency virus, controlled. 3. Moderate protein-energy malnutrition. 4. Folic acid deficiency. 5. Elevated lead level in blood, most likely related to his work exposure. He works with the [employer]. PLAN: Plan is to continue his current regimen with penicillin G every 4 hours and continue folic acid. His amlodipine is 5 mg. His blood pressure is significantly improved with this regimen. His lead is improved, and we are going to send him back home with recommendation to follow up with his primary and address this lead elevation issue, but for now, he is going to stay until we have finalized the process. As soon as we are ready, we will start him on PICC line and set him out for outpatient antibiotic therapy. Job ID: [id number]
--- NOTE | 2019-01-20 17:24 | PRG ---
DATE OF SERVICE: 01/20/2019 SUBJECTIVE: He is about the same. He is able to walk. He does not walk as much as he should probably, gets tired. Still with the same sensory manifestation with numbness. No other symptoms of significance. OBJECTIVE: His vital signs are normal. The exam is not remarkable. He is able to lift his legs from the bed at this time. Reflexes are present. LABORATORY DATA: The chemistry with albumin 3.0. Folate 6.2. VDRL in the CSF was negative. ASSESSMENT AND DISCUSSION: Human immunodeficiency virus infection with good compliance with antiretroviral therapy and decent CD4 cell count. Syphilis, possible neuro syphilis. The VDRL being negative does not rule out possibility neuro syphilis, particularly in view of the abnormalities on the cell count and will continue to be treated as such. The lead level was elevated at 19 and this is due to occupational exposure. Lead can cause neuropathy. We will have neurologist take a look and see what he thinks about this. Job ID: [id number]
[2019-01-20] MEDS: [UNRECOGNIZED DRUG - OTHER] PO SCH (17:40)
[2019-01-21] MEDS: Penicillin G Potassium 4 MILL.UNITS in Sodium Chloride 0.9% 100 ML IVPB SCH ×6 (01:07→20:53)
[2019-01-21] MEDS: HYDROcodone/Acetaminophen 7.5/325 mg Tablet PO PRN ×2 (02:10→09:11)
[2019-01-21] MEDS ORDERED: Procaine Penicillin 1,200,000 UNITS/2 ML SYRINGE IM SCH (09:00)
[2019-01-21] MEDS: Multivit, Therapeutic 1 TAB PO SCH (09:12)
[2019-01-21] MEDS: Amlodipine 5 MG TAB PO SCH (09:12)
[2019-01-21] MEDS: Folic Acid 1 MG TAB PO SCH ×2 (09:12→20:53)
[2019-01-21] MEDS: Cyanocobalamin (Vitamin B-12) 1,000 MCG TAB PO SCH (09:12)
[2019-01-21] MEDS: Famotidine 20 MG TAB PO SCH ×2 (09:12→20:53)
[2019-01-21] MEDS: traMADol HCl 50 MG TAB PO PRN (13:54)
--- NOTE | 2019-01-21 14:51 | PRG ---
DATE OF SERVICE: 01/21/2019 SUBJECTIVE: The patient is seen and examined at the bedside. He is not showing any other complaints over those what he usually complains about back pain, chronic problem and numbness which starts at the level of the pectorals muscle down to both feet. This is unchanged. OBJECTIVE: VITAL SIGNS: Blood pressure is 125/80, pulse is 79, temperature 97.8, respiratory rate is 18, O2 saturation is 98% on room air. HEENT: His head is atraumatic and normocephalic. Eyes are PERRLA. Sclerae are nonicteric. Oral mucosa is moist. NECK: Supple. LUNGS: Clear. HEART: S1, S2 normal. No S3. No S4. ABDOMEN: Soft, nontender, nondistended. Bowel sounds are present. No organomegaly. EXTREMITIES: No clubbing, cyanosis, or edema. NEUROLOGICAL: He has numbness down from pectorals muscle level, similar bilaterally. He has some generalized mild to moderate weakness in both up and lower extremities. He follows my commands, he moves all 4 extremities. LABORATORY DATA: None today. IMPRESSION: 1. Central nervous system syphilis, on penicillin G. Neurologically unchanged. Neurology consultation done with Dr. Peralta who requested MRI of the brain to be done today. If it is negative, he will be discharged home on penicillin procaine 4.2 million units with probenecid 0.5 mg 4 times a day until January 29. 2. Human immunodeficiency virus infection, controlled on current regimen. 3. Moderate protein energy malnutrition. 4. Folic acid deficiency. 5. Elevated lead level in blood secondary to work exposure. This will be addressed by primary care physician after the discharge from the hospital and completion of the antibiotic treatment. PLAN: We are going to obtain MRI of the brain as per Neurology consultation recommendation. We will continue his amlodipine 5 mg once a day, for now we will continue penicillin G every 4 hours and if MRI of the brain is negative, he will be discharged home. If this will be done tomorrow morning, he will be discharged home after the MRI is done. He does not need any PICC line since Dr. Graves decided to use penicillin procaine which is IM. Job ID: [id number]
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
[2019-01-21] MEDS: [UNRECOGNIZED DRUG - OTHER] PO SCH (17:41)
[2019-01-22] MEDS: Penicillin G Potassium 4 MILL.UNITS in Sodium Chloride 0.9% 100 ML IVPB SCH ×4 (01:03→13:02)
[2019-01-22] MEDS: traMADol HCl 50 MG TAB PO PRN ×2 (01:06→06:34)
[2019-01-22] MEDS: Famotidine 20 MG TAB PO SCH (08:46)
[2019-01-22] MEDS: Cyanocobalamin (Vitamin B-12) 1,000 MCG TAB PO SCH (08:46)
[2019-01-22] MEDS: Multivit, Therapeutic 1 TAB PO SCH (08:47)
[2019-01-22] MEDS: Folic Acid 1 MG TAB PO SCH (08:47)
[2019-01-22] MEDS: Amlodipine 5 MG TAB PO SCH (08:47)
--- NOTE | 2019-01-22 11:30 | MRI ---
MRI BRAIN WITH AND WITHOUT CONTRAST. INDICATION: Leg weakness. COMPARISON: Correlation is made to CT 01/13/2019. FINDINGS: Ventricles have normal size and position. No evidence of restricted diffusion. No mass or edema. N o significant white matter abnormality. No abnormal enhancement. The intracranial internal carotid arteries, proximal cerebral arteries, and basilar arteries exhibit flow voids. Mild mucosal edema in the left mastoid air cells. Paranasal sinuses appear clear. IMPRESSION: No acute findings. POS: OFF
[2019-01-22 13:21] VITALS: BP 119/81; TEMP 97.7
--- NOTE | 2019-01-22 14:39 | DIS ---
DATE OF ADMISSION: 01/13/2019 DATE OF DISCHARGE: 01/22/2019 FINAL DIAGNOSES AT THE TIME OF DISCHARGE: 1. Central nervous system syphilis. 2. Human immunodeficiency virus infection. 3. Moderate protein-energy malnutrition. 4. Folic acid deficiency. 5. Elevated lead level in blood secondary to work exposure. CONSULTANTS: Dr. Vince Graves, Infectious Disease and Dr. Peralta, Neurology Service. HOSPITAL COURSE: The patient is a 58-year-old male, who was admitted to the hospital with back pain and numbness of the chest and lower extremities. He has a history of HIV virus infection, and he is on antiretroviral therapy since 2004. He complained of approximately 3-week history of paresthesias, numbness from the mid torso to the lower extremities. He denied any fever, chills, or bowel or bladder incontinence. He complained of central lower back pain which is relatively chronic. The patient denied any chest pain, shortness of breath, unilateral weakness, or difficulty with speech. In the emergency room during evaluation, he underwent extensive evaluation with multiple imaging modalities including MRI of the cervical spine and thoracic and lumbar spine in addition to CT of the brain. Cervical spine MRI showed questionable mass in the right lateral recess at C5 on C6. CT of the brain without contrast showed no acute intracranial process. The patient received IV fluids in the emergency room and was referred to the Hospitalist Service for admission and evaluation. During this emergency room evaluation, his white cell count was 5.6, hemoglobin 13.6, hematocrit 42, platelet count 178 with 73% neutrophils. ESR was 41. Total CK was 52. CRP 1.73. Metabolic panel/profile was within normal limits. CT of the brain without contrast showed no acute intracranial process, and MRI of the lumbar spine showed moderate degenerative disk disease. Thoracic spine MRI showed no major pathology, and cervical spine MRI showed a lesion in the right lateral recess at C5 on C6 with widening of the right fossa joint and severe right neural foraminal stenosis at C5 on C6. Portable chest x-ray showed no acute cardiopulmonary process. Neurology consultation was requested. The patient was started on vancomycin and Zosyn for questionable diskitis or infectious process. Infectious Disease specialist was consulted for further evaluation of the problem. He was continued on Symtuza, and serum protein electrophoresis was done, and it came back within normal limits. His folic acid level came back low at 6.2, and vitamin B12 came back kind of borderline at 323. The patient was started on both. He underwent CT of the abdomen, chest, and pelvis, which was negative for any inflammatory process. The patient was seen by Dr. Graves, who stopped vancomycin and Zosyn and started penicillin G. LP was done, which showed CSF in pink color, cloudy/turbid, segmented neutrophils percentage 37, lymphocytes percentage 44, eosinophils 3%, non-hematological percent 16 which is normal, rbc's 19,797, total nucleated auto 115, glucose was 48, and total protein was 133. VDRL on CSF came back nonreactive. West Nile IgG antibodies and West Nile IgM antibodies on CSF are still pending. A heavy metal screening showed whole blood arsenic level 4 which is normal and whole blood lead level 19 which is elevated, normal is up to 4. Mercury was not detected. Total protein, which was EDMUND, was 5.8 which is low, and albumin EDMUND 2.7 which is low too. Serology; IgG/IgM antibodies came back reactive, and RPR titer was 1:32 which was high. Urinalysis came back within normal limits except for urobilinogen at 4.0. The patient was also evaluated by Neurosurgical Team, and by Dr. Peralta for Neurology evaluation. Brain MRI was done which came back basically within normal limits. During this hospitalization, we tried hydrocodone and tramadol for his back pain. Tramadol was found to be more beneficial than [place], so the patient is going to be discharged on that. The patient is doing well. His blood pressure is 124/84, pulse is 78, respiratory rate is 20, temperature is 97.9, O2 saturation is 98% on room air. He is advised to take some supplements to improve his weight. He is approximately 130 pounds, and he shows some signs of malnutrition. DISPOSITION: He is discharged home. ACTIVITIES: As tolerated. DISCHARGE MEDICATIONS: 1. Symtuza 1 tablet once a day. 2. Tramadol 100 mg p.o. q.4 hours p.r.n. as needed. 3. Probenecid 500 mg 4 times a day. 4. Penicillin G procaine 4.2 million units IM once a day, every 24 hours. 5. Multivitamin 1 a day. 6. Folic acid 1 mg twice a day. 7. Cyanocobalamin (vitamin B12) 1000 mcg once a day. 8. Amlodipine 5 mg daily. 9. Tylenol p.r.n. as needed. FOLLOWUP: The patient is going to follow up with Dr. Graves, who is his both ID specialist and primary care physician. He is discharged in good condition, and he will be coming for his penicillin until January 29, as outpatient basis, and Dr. Peralta requested a followup with Dr. Yates for additional testing on his paresthesias, and this is going to be passed to the patient. Job ID: [id number]
--- NOTE | 2019-01-24 04:35 | PQF ---
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 Clinical indicators are provided on the bottom of this form for your review Please check appropriate box(s): Kindly Clarify which condition patient had [ x ] AIDS [ ] Asymptomatic HIV infection status [ ] Non-specific serologic evidence of HIV [ ] Other diagnosis [ ] Unable to determine In addition, please specify: Present on Admission (POA): [ ] Yes [ ] No [ ] Unable to determine For continuity of documentation, please document condition throughout progress notes and discharge summary. Thank You. 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 All Rights Reserved [email or web address] [not provided] MTDD
[2019-01-24 13:10] LABS: West Nile Virus IgG Ab - CSF Negative (Negative); West Nile Virus IgM Ab - CSF Negative (Negative)
== END 2019-01-22 14:26 | disposition home or self-care (01) | DRG 977 ==
LOC: SCSER 15:45 → T4-B 19:51
PROVIDERS: ADMIT Internal Medicine; ATTEND Internal Medicine
PROC: 009U3ZX Drainage of Spinal Canal, Percutaneous Approach, Diagnostic (ICD-10-PCS; principal; 2019-01-17)
DX: B20 Human immunodeficiency virus [HIV] disease (principal); E44.0 Moderate protein-calorie malnutrition; Z68.1 Body mass index [BMI] 19.9 or less, adult; F17.210 Nicotine dependence, cigarettes, uncomplicated; G62.9 Polyneuropathy, unspecified; R26.0 Ataxic gait; M50.123 Cervical disc disorder at C6-C7 level with radiculopathy; M48.02 Spinal stenosis, cervical region; E53.8 Deficiency of other specified B group vitamins; Z57.9 Occupational exposure to unspecified risk factor
CPT/HCPCS: 36415; 62270; 70450; 70553; 71045; 71260; 72141; 72146; 72148; 72156; 74177; 80048; 80053; 80202; 81003; 82175; 82550; 82607; 82746; 82945; 83655; 83735; 83825; 84100; 84157; 84165; 84439; 84443; 85007; 85025; 85027; 85060; 85652; 86140; 86592; 86593; 86780; 86788; 86789; 87899; 89051; 93005; 96360; J2270; J2540; J2543; J3370; J3420; J3490; J7050; Q9967

== ENCOUNTER 2019-01-23 13:47 | Emergency (ER) | payer SELFPAY ==
[2019-01-23] MEDS ORDERED: Bicillin CR 1.2 MILL UNITS/2 ML SYRINGE IM SCH (15:30)
== END 2019-01-23 16:12 | disposition home or self-care (01) ==
LOC: ERS 13:47
DX: A52.3 Neurosyphilis, unspecified (principal); B20 Human immunodeficiency virus [HIV] disease; F17.210 Nicotine dependence, cigarettes, uncomplicated; Z79.899 Other long term (current) drug therapy
CPT/HCPCS: 96372; J0558

== ENCOUNTER 2019-11-03 10:12 | Emergency (ER) | payer SELFPAY ==
[2019-11-03] MEDS ORDERED: cefTRIAXone\\ROCEPHIN 2 GM VIAL ONE (10:50)
--- NOTE | 2019-11-03 11:01 | RAD ---
XR Chest 1 View Portable HISTORY: Fever. Rash COMPARISON: 01/13/2019 FINDINGS: The heart size is normal. The lungs are well expanded without focal areas of consolidation, pneumothorax or pleural effusions. IMPRESSION: No radiographic evidence of acute cardiopulmonary process.
[2019-11-03 11:54] LABS: #Lymphocytes 1.3 thou/uL (1.20-3.40); #Monocytes 0.4 thou/uL (0.11-0.59); #Neutrophils 6.5 thou/uL (1.40-6.50); %Basophils 0.1 % (0.0-1.0); %Eosinophils 0.3 % (0.0-10.0); %Monocytes 5.2 % (0.0-10.0); %Neutrophils 78.4 % (42.0-75.0); Hemoglobin 13.1 g/dL (14.0-18.0); Mean Corpuscular HGB CONC 32.3 g/dL (32.0-36.0); Mean Corpuscular Hemoglobin 29.3 pg (27.0-31.0); Mean Corpuscular Volume 90.9 fL (78.0-98.0); Mean Platelet Volume 8.1 fL (7.4-10.4); Platelet Count 184 thou/uL (130-400); RBC Distribution Width 13.6 % (11.5-14.5); Red Blood Cell (RBC) Count 4.47 mill/uL (4.70-6.10); White Blood Cell (WBC) Count 8.3 thou/uL (4.8-10.8)
[2019-11-03 12:11] LABS: ALT (SGPT) 10 U/L (8-55); AST (SGOT) 23 U/L (5-34); Albumin 4.4 g/dL (3.4-4.8); Alkaline Phosphatase 69 U/L (40-110); Anion Gap 11 mmol/L (10-20); BUN (Urea Nitrogen) 23 mg/dL (8.4-25.7); Bilirubin, Total 0.9 mg/dL (0.2-1.2); Calc. Creatinine Clearance 0 mL/min (70-130); Calcium 8.9 mg/dL (7.8-10.44); Carbon Dioxide 26 mmol/L (23-31); Chloride 97 mmol/L (98-107); Estimated GFR-MDRD 82; Glucose 76 mg/dL (80-115); Potassium 4.3 mmol/L (3.5-5.1); Protein, Total 8.4 g/dL (5.8-8.1); Sodium 130 mmol/L (136-145)
[2019-11-03 13:26] LABS: Bilirubin Negative (Negative); Blood, Urine Negative (Negative); Clarity Clear (Clear); Glucose, Urine (Dipstick) Normal (Negative); Ketone, Urine Negative (Negative); Leukocyte Negative Leu/uL (Negative); Nitrite Negative (Negative); Protein, Urine (Dipstick) Negative (Neg-Trace); Specific Gravity, Urine 1.018 (1.002-1.036); Urobilinogen Normal mg/dL (Less than 2)
[2019-11-03 14:58] LABS: Syphilis Antibody Index 16.68 S/CO (<1.00 Non-Reactive)
[2019-11-03 18:04] LABS: Syphilis Antibody INDETERMINATE (Nonreactive)
== END 2019-11-03 14:12 | disposition home or self-care (01) ==
LOC: ERS 10:12
DX: L01.00 Impetigo, unspecified (principal); F17.210 Nicotine dependence, cigarettes, uncomplicated
CPT/HCPCS: 36415; 71045; 80053; 81003; 83605; 85025; 86593; 86780; 87040; 87086; 96365; J0696

== ENCOUNTER 2021-01-30 10:47 | Emergency (ER) | payer SELFPAY ==
[2021-01-30 12:13] LABS: #Eosinphils 0.6 thou/uL (0.0-0.7); #Lymphocytes 1.6 thou/uL (1.20-3.40); #Monocytes 0.5 thou/uL (0.11-0.59); #Neutrophils 3.4 thou/uL (1.40-6.50); %Basophils 0.3 % (0.0-1.0); %Eosinophils 9.4 % (0.0-10.0); %Monocytes 7.5 % (0.0-10.0); %Neutrophils 55.7 % (42.0-75.0); Hemoglobin 12.4 g/dL (14.0-18.0); Mean Corpuscular HGB CONC 34.1 g/dL (32.0-36.0); Mean Corpuscular Hemoglobin 30.9 pg (27.0-31.0); Mean Corpuscular Volume 90.4 fL (78.0-98.0); Mean Platelet Volume 7.2 fL (7.4-10.4); Platelet Count 178 thou/uL (130-400); RBC Distribution Width 12.4 % (11.5-14.5); Red Blood Cell (RBC) Count 4.03 mill/uL (4.70-6.10); White Blood Cell (WBC) Count 6.1 thou/uL (4.8-10.8)
[2021-01-30 12:25] LABS: ALT (SGPT) 59 U/L (8-55); AST (SGOT) 41 U/L (5-34); Albumin 3.3 g/dL (3.4-4.8); Alkaline Phosphatase 77 U/L (40-110); Anion Gap 10 mmol/L (10-20); BUN (Urea Nitrogen) 31 mg/dL (8.4-25.7); Bilirubin, Total 0.6 mg/dL (0.2-1.2); Calc. Creatinine Clearance 0 mL/min (70-130); Calcium 9.1 mg/dL (7.8-10.44); Carbon Dioxide 28 mmol/L (23-31); Chloride 106 mmol/L (98-107); Globulin 3.3 g/dL (2.4-3.5); Glucose 87 mg/dL (80-115); Potassium 4.4 mmol/L (3.5-5.1); Protein, Total 6.6 g/dL (5.8-8.1); Sodium 140 mmol/L (136-145)
== END 2021-01-30 15:11 | disposition home or self-care (01) ==
LOC: ERS 10:47
DX: R20.2 Paresthesia of skin (principal); B20 Human immunodeficiency virus [HIV] disease; F17.210 Nicotine dependence, cigarettes, uncomplicated
CPT/HCPCS: 36415; 80053; 83735; 84443; 85025; 99284

== ENCOUNTER 2021-08-21 14:24 | Emergency (ER) | payer SELFPAY ==
[2021-08-21] MEDS ORDERED: Proparacaine 0.5% Opth 15 ML BOT ONE (14:44)
[2021-08-21 15:40] LABS: #Eosinphils 0.1 thou/uL (0.0-0.7); #Lymphocytes 1.2 thou/uL (1.20-3.40); #Monocytes 0.3 thou/uL (0.11-0.59); #Neutrophils 3.3 thou/uL (1.40-6.50); %Basophils 0.4 % (0.0-1.0); %Eosinophils 2.6 % (0.0-10.0); %Lymphocytes 23.5 % (21.0-51.0); %Monocytes 6.6 % (0.0-10.0); Hemoglobin 12.4 g/dL (14.0-18.0); Mean Corpuscular Hemoglobin 29.6 pg (27.0-31.0); Mean Corpuscular Volume 89.8 fL (78.0-98.0); Mean Platelet Volume 7.5 fL (7.4-10.4); Platelet Count 201 thou/uL (130-400); RBC Distribution Width 12.4 % (11.5-14.5); Red Blood Cell (RBC) Count 4.19 mill/uL (4.70-6.10)
[2021-08-21 15:51] LABS: PTT 32.8 sec (22.9-36.1); Prothrombin Time 13.6 sec (12.0-14.7)
[2021-08-21 16:02] LABS: ALT (SGPT) 25 U/L (8-55); AST (SGOT) 28 U/L (5-34); Albumin 3.4 g/dL (3.4-4.8); Alkaline Phosphatase 82 U/L (40-110); Anion Gap 13 mmol/L (10-20); BUN (Urea Nitrogen) 30 mg/dL (8.4-25.7); Bilirubin, Total 0.6 mg/dL (0.2-1.2); Calc. Creatinine Clearance 0 mL/min (70-130); Calcium 9.4 mg/dL (7.8-10.44); Carbon Dioxide 26 mmol/L (23-31); Chloride 105 mmol/L (98-107); Estimated GFR 93; Globulin 4.3 g/dL (2.4-3.5); Glucose 112 mg/dL (80-115); Potassium 4.2 mmol/L (3.5-5.1); Protein, Total 7.7 g/dL (5.8-8.1); Sodium 140 mmol/L (136-145)
[2021-08-21 20:44] LABS: SARS-CoV-2 NAA Rapid Test Not Detected (NotDetected)
== END 2021-08-21 20:47 | disposition home or self-care (01) ==
LOC: ERS 14:24
DX: H54.7 Unspecified visual loss (principal); B20 Human immunodeficiency virus [HIV] disease; H35.81 Retinal edema; F17.210 Nicotine dependence, cigarettes, uncomplicated; Z20.822 Contact with and (suspected) exposure to COVID-19; Z79.899 Other long term (current) drug therapy
CPT/HCPCS: 36415; 70551; 80053; 84484; 85025; 85610; 85730; 93005; U0002

== ENCOUNTER 2023-07-21 21:42 | Emergency (ER) | payer SELFPAY ==
[2023-07-21 23:14] LABS: %Eosinophils 5.9 % (0.0-10.0); Mean Corpuscular Volume 90.6 fL (78.0-98.0); RBC Distribution Width 13.9 % (11.5-14.5)
[2023-07-21 23:23] LABS: #Basophils Less than 0.03 10x3/uL (0.0-0.2); %Basophils 0.4 % (0.0-1.0); %Lymphocytes 32.8 % (21.0-51.0); %Monocytes 6.1 % (0.0-10.0); %Neutrophils 54.4 % (42.0-75.0); Hematocrit 36.6 % (42.0-52.0); Hemoglobin 12.4 g/dL (14.0-18.0); Mean Corpuscular HGB CONC 33.9 g/dL (32.0-36.0); Mean Corpuscular Hemoglobin 30.7 pg (27.0-31.0); Platelet Count 178 10x3/uL (130-400); Red Blood Cell (RBC) Count 4.04 mill/uL (4.70-6.10)
[2023-07-21 23:34] LABS: Lipase 34 U/L (8-78)
[2023-07-21 23:35] LABS: ALT (SGPT) 28 U/L (8-55); AST (SGOT) 27 U/L (5-34); Albumin 3.1 g/dL (3.4-4.8); Alkaline Phosphatase 100 U/L (40-110); Anion Gap 14 mmol/L (10-20); BUN (Urea Nitrogen) 17 mg/dL (8.4-25.7); Bilirubin, Total 0.5 mg/dL (0.2-1.2); CK (CPK) 158 U/L (30-200); Calc. Creatinine Clearance 0 mL/min (70-130); Calcium 8.6 mg/dL (7.8-10.44); Carbon Dioxide 24 mmol/L (23-31); Chloride 107 mmol/L (98-107); Estimated GFR 73; Globulin 3.3 g/dL (2.4-3.5); Glucose 94 mg/dL (80-115); Potassium 3.7 mmol/L (3.5-5.1); Protein, Total 6.4 g/dL (5.8-8.1); Sodium 141 mmol/L (136-145)
[2023-07-21 23:36] LABS: Acetaminophen Less than 10 mcg/mL (10.0-30.0); Alcohol Less than 10.0 mg/dL (Less than 10); Salicylate Less than 8.0 mg/dL (15.0-30.0)
[2023-07-21 23:39] LABS: Troponin I Less than 0.010 ng/mL (< 0.028)
[2023-07-22 02:27] LABS: Bacteria/HPF None Seen HPF (None Seen); Bilirubin Negative (Negative); Blood, Urine Negative (Negative); CAUTI Indications for Culture Acute Hematuria; Clarity Clear (Clear); Glucose, Urine (Dipstick) Normal (Negative); Ketone, Urine Negative (Negative); Leukocyte Negative Leu/uL (Negative); Nitrite Negative (Negative); Protein, Urine (Dipstick) Negative (Neg-Trace); RBC/HPF 0-3 HPF (0-3); Squamous Epithelial None Seen HPF (0-3); Urobilinogen Normal mg/dL (Less than 2); WBC/HPF 0-3 HPF (0-3)
[2023-07-22 02:29] LABS: Urine Culture Reflex No No
[2023-07-22 02:35] LABS: Amphetamine Detected (NotDetected); Barbiturates Screen Not Detected (NotDetected); Benzodiazepine Screen Not Detected (NotDetected); Cocaine Metabolite Screen Not Detected (NotDetected); Methadone Not Detected (NotDetected); Methamphetamine Not Detected (NotDetected); Opiate Screen Not Detected (NotDetected); Oxycodone Screen Not Detected (NotDetected); Phencyclidine (PCP) Not Detected (NotDetected); THC/Cannabinoid Screen Not Detected (NotDetected); Tricyclic Screen Not Detected (NotDetected)
== END 2023-07-22 05:04 | disposition home or self-care (01) ==
LOC: ERS 21:42
DX: E86.0 Dehydration (principal); B20 Human immunodeficiency virus [HIV] disease; F17.290 Nicotine dependence, other tobacco product, uncomplicated
CPT/HCPCS: 71045; 80053; 80306; 80307; 81001; 82140; 82550; 83605; 83690; 84443; 84484; 85025; 87040; 87536; 93005; 96360; 96361

== ENCOUNTER 2023-11-21 19:57 | Emergency (ER) | payer MEDICARE, SELFPAY ==
[2023-11-21] MEDS ORDERED: Boostrix 0.5 ML (Tdap) VIAL (>/=7 yrs of age) ONE (20:03)
[2023-11-21 20:12] LABS: #Basophils 0.04 10x3/uL (0.0-0.2); %Basophils 0.8 % (0.0-1.0); %Eosinophils 1.9 % (0.0-10.0); %Lymphocytes 31.2 % (21.0-51.0); %Monocytes 9.3 % (0.0-10.0); %Neutrophils 56.6 % (42.0-75.0); Hematocrit 47.9 % (42.0-52.0); Hemoglobin 16.2 g/dL (14.0-18.0); Mean Corpuscular HGB CONC 33.8 g/dL (32.0-36.0); Mean Corpuscular Hemoglobin 28.9 pg (27.0-31.0); Mean Corpuscular Volume 85.5 fL (78.0-98.0); Mean Platelet Volume 9.9 fL (7.4-10.4); Platelet Count 183 10x3/uL (130-400); RBC Distribution Width 13.9 % (11.5-14.5)
[2023-11-21 20:43] LABS: ALT (SGPT) 56 U/L (8-55); AST (SGOT) 44 U/L (5-34); Albumin 4.1 g/dL (3.4-4.8); Alkaline Phosphatase 88 U/L (40-110); Anion Gap 13 mmol/L (10-20); BUN (Urea Nitrogen) 15 mg/dL (8.4-25.7); Bilirubin, Total 0.8 mg/dL (0.2-1.2); Calc. Creatinine Clearance 0 mL/min (70-130); Calcium 10.1 mg/dL (7.8-10.44); Carbon Dioxide 24 mmol/L (23-31); Chloride 109 mmol/L (98-107); Estimated GFR 69; Globulin 3.8 g/dL (2.4-3.5); Glucose 86 mg/dL (80-115); Potassium 3.7 mmol/L (3.5-5.1); Protein, Total 7.9 g/dL (5.8-8.1); Sodium 142 mmol/L (136-145)
== END 2023-11-21 22:24 | disposition home or self-care (01) ==
LOC: ERS 19:57
DX: S80.211A Abrasion, right knee, initial encounter (principal); S00.81XA Abrasion of other part of head, initial encounter; I10 Essential (primary) hypertension; R94.5 Abnormal results of liver function studies; F17.290 Nicotine dependence, other tobacco product, uncomplicated; B20 Human immunodeficiency virus [HIV] disease; V03.99XA Pedestrian with other conveyance injured in collision with car, pick-up truck or van, unspecified whether traffic or nontraffic accident, initial encounter
CPT/HCPCS: 71045; 72170; 80053; 85025; 90471; 90715; 93005; G0390